=== PATIENT | female | born 2000 | race Caucasian/White ===

== ENCOUNTER 2023-08-08 21:42 | Emergency (ER) | payer BC, SELFPAY ==
[2023-08-08 21:50] VITALS: BP 114/71; PULSE 69; RESP 16; TEMP 36.6; O2SAT 98; BMI 20.1
--- NOTE | 2023-08-08 22:00 | ED_ITS ---
HPI - General Adult General Time Seen by Provider: 22:00 Date Seen: 08/08/23 Chief complaint: Psychiatric Problem/Disorder Stated complaint: suicidal ideation Time Seen by Provider: 08/08/23 22:00 Source: patient and RN notes reviewed Mode of arrival: ambulatory Limitations: no limitations History of Present Illness HPI narrative: Jess is a very pleasant 23-year-old female who comes to the emergency room from [place] for suicidal ideation. Patient notes that she has had undiagnosed depression for quite some time. She did see therapy I with a counselor during COVID and she thinks that was helpful. Not currently on any antidepressant. No large event that seems to have caused this. Patient is been experiencing significant anxiety over the past couple weeks. She has had passive thoughts of suicide but the seemed to increase today and she even was thinking about a plan. She spoke to a friend about this as well as if her fashion all and was advised to come to the emergency room. In her discussion with nursing she does not really want to but just wants some relief from what she has been feeling. 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 She notes that school is actually going well. She is from [place]. She is not denies any sexual activity, alcohol use, drug use or tobacco use. There is a history of depression in the family. She denies auditory or visual hallucinations. No other known medical problems. Denies any self-harm or taking of pills or cutting today. Related Data Home Medications Medication Instructions Recorded Confirmed spironolactone .ROUTE 08/08/23 Allergies Allergy/AdvReac Type Severity Reaction Status Date / Time No Known Drug Allergies Allergy Verified 08/08/23 21:58 Review of Systems Status of ROS: Reports: 10 or more systems reviewed and unremarkable except as noted in History and below Const: Denies: fever or chills Eyes: Denies: change in vision ENMT: Reports: nasal congestion (A few weeks ago now resolved); Denies: throat pain Cardio: Denies: chest pain or shortness of breath with exertion Resp: Denies: shortness of breath or cough GI: Denies: abdominal pain or vomiting Musculo: Denies: back pain PFSH PFSH Social History Smoking Status: Never smoker How often do you have a drink containing alcohol: never AUDIT-C Alcohol total score: 0 Non-prescribed substance use: denies use Exam Narrative: Exam Narrative: Jess is alert and oriented. She is very tearful during our initial interview. EOM is full in head is atraumatic normocephalic. Mentation is normal. She is having a hard time with extensive speaking because she is crying. Neck is supple without lymphadenopathy. No thyromegaly. Heart with regular rate and rhythm and lungs are clear. Moving all extremities. No eviden ce of old scars are cutting type behavior. No blocking or strange behavior. Const: Vital Signs, click to edit/add: Vital Signs - 24 hr 08/08/23 21:50 Temperature 97.9 F Pulse Rate [Pulse Oximeter] 69 Respiratory Rate 16 Blood Pressure [Le ft Upper Arm] 114/71 Pulse Oximetry 98 Oxygen Delivery Me thod Room Air Documenting provider has reviewed patient's vital signs: yes Course Course ED Course: Jess presents to the emergency room with increasing anxiety and now is suicidal id a soni. I do not detect a specific plan. Will have her speak to her mental health order fulfillment specialist. She is agreeable to lab draw to include CBC, comprehensive panel, salicylates, alcohol, acetaminophen drug screen urinalysis. Will also add vitamin-D magnesium and TSH given her anxiety that proceeded depression and suicidal ideation. She is agreeable. She is in the emergency room voluntarily at this time. Vital Signs Vital signs: Initial Vital Signs Temperature 97.9 F 08/08/23 21:50 Temperature Source Temporal Artery Scan 08/08/23 21:50 Pulse Rate 69 08/08/23 21:50 Respiratory Rate 16 08/08/23 21:50 Blood Pressure 114/71 08/08/23 21:50 Blood Pressure Mean 85 08/08/23 21:50 Blood Pressure Position Sitting 08/08/23 21:50 Pulse Oximetry 98 08/08/23 21:50 Oxygen Delivery Method Room Air 08/08/23 21:50 Vital Signs Temperature 97.9 F 08/08/23 21:50 Pulse Rate 69 08/08/23 21:50 Respiratory Rate 16 08/08/23 21:50 Blood Pressure 114/71 08/08/23 21:50 Pulse Oximetry 98 08/08/23 21:50 Oxygen Delivery Method Room Air 08/08/23 21:50 Temperature 97.9 F 08/08/23 21:50 Pulse Rate 69 08/08/23 21:50 Respiratory Rate 16 08/08/23 21:50 Blood Pressure 114/71 08/08/23 21:50 Pulse Oximetry 98 08/08/23 21:50 Oxygen Delivery Method Room Air 08/08/23 21:50 Medical Decision Making MDM Narrative Medical decision making narrative: 1. Depression with suicidal ideation-suicidal ideation seems passive in nature. Patient is very tearful. Laboratory values are all reassuring with negative drug screen as well as acetaminophen alcohol and salicylates. Patient will be talking to our mental health order fulfillment specialist. 2. Disposition -this case is signed out to my partner Dr. Aleman for disposition. Lab Data Lab results reviewed: Yes I reviewed the patient's lab results Labs: Lab Results 08/08/23 Range/Units 22:30 WBC 6.79 (4.50-11.00) K/uL RBC 4.23 (4.00-5.20) m/uL Hgb 12.6 (12.0-16.0) gm/dL Hct 38.7 (33.0-51.0) % MCV 92 (80-100) fL MCH 30 (26-34) pg MCHC 33 (32-36) gm/dL RDW Coeff of Misti 11.5 (11.5-15.5) % Plt Count 296 (140-440) K/uL Neut % (Auto) 57.0 (42.0-72.0) % Lymph % (Auto) 33.9 (20-44) % [place] % (Auto) 6.9 (0.0-11.0) % Eos % (Auto) 1.3 (0.0-7.0) % Baso % (Auto) 0.3 (0.0-3.0) % Neut # (Auto) 3.87 (1.7-7.0) K/uL Lymph # (Auto) 2.30 (0.90-2.90) K/uL [place] # (Auto) 0.50 (0.00-0.90) K/UL Eos # (Auto) 0.09 (0.00-0.50) K/uL Baso # (Auto) 0.02 (0.00-0.30) K/uL Abs Immat Gran (auto) 0.04 (0.00-0.30) K/uL Imm/Tot Granulo (auto) 0.6 % Sodium 136 (135-149) mmol/L Potassium 3.6 (3.6-5.1) mmol/L Chloride 102 (96-114) mmol/L Carbon Dioxide 28 (20-32) mmol/L Anion Gap 6 L (7-15) mEq/L BUN 17 (5-24) mg/dL Creatinine 0.6 (0.5-1.5) mg/dL Estimated Creat Clear 147.44 Estimated GFR 130 ml/min Glucose 96 (60-115) mg/dL Calcium 9.1 (8.4-10.6) mg/dL Magnesium 2.2 (1.5-2.6) mg/dL Total Bilirubin 0.4 (0.1-1.5) mg/dL AST 19 (12-35) U/L ALT 13 (4-35) U/L Alkaline Phosphatase 58 (40-150) U/L Total Protein 7.2 (6.0-8.3) g/dL Albumin 4.4 (3.3-5.0) g/dL 25-OH Vitamin D Total 40 (30-80) ng/mL TSH 1.440 (0.270-4.200) uIU/mL Salicylates < 1.0 L (1.0-10) mg/dL Acetaminophen < 10.0 L (10.0-30.0) ug/mL Ethyl Alcohol < 0.01 L (0.01-0.03) % Discharge Plan Discharge Clinical Impression: Depression Qualifiers: Depression Type: unspecified Qualified Code(s): F32.A - Depression, unspecified Condition: Improved Prescriptions: No Action spironolactone .ROUTE Follow Up/Referrals: Provider,Not a Local [Primary Care Provider] -
[2023-08-08 22:43] LABS: Basophils Absolute Auto 0.02 K/uL (0.00-0.30); Basophils Percent Auto 0.3 % (0.0-3.0); Eosinophils Absolute Auto 0.09 K/uL (0.00-0.50); Eosinophils Percent Auto 1.3 % (0.0-7.0); Hematocrit 38.7 % (33.0-51.0); Hemoglobin* 12.6 gm/dL (12.0-16.0); Immature Granulocytes Abs Auto 0.04 K/uL (0.00-0.30); Immature Granulocytes Pct Auto 0.6 %; Lymphocytes Percent Auto 33.9 % (20-44); Mean Corpuscular HGB Conc 33 gm/dL (32-36); Mean Corpuscular Hemoglobin 30 pg (26-34); Mean Corpuscular Volume 92 fL (80-100); Monocytes Percent Auto 6.9 % (0.0-11.0); Neutrophils Absolute Auto 3.87 K/uL (1.7-7.0); Platelet Count* 296 K/uL (140-440); RDW Coefficient of Variation % 11.5 % (11.5-15.5); Red Blood Count 4.23 m/uL (4.00-5.20); White Blood Count* 6.79 K/uL (4.50-11.00)
[2023-08-08 22:49] LABS: Slide Review Reflex No
[2023-08-08 22:51] LABS: Albumin* 4.4 g/dL (3.3-5.0)
[2023-08-08 22:52] LABS: Chloride* 102 mmol/L (96-114); Potassium* 3.6 mmol/L (3.6-5.1); Sodium* 136 mmol/L (135-149)
[2023-08-08 22:54] LABS: Alkaline Phosphatase* 58 U/L (40-150); Anion Gap 6 mEq/L (7-15); Aspartate Amino Transferase* 19 U/L (12-35); Bilirubin Total* 0.4 mg/dL (0.1-1.5); Blood Urea Nitrogen* 17 mg/dL (5-24); Carbon Dioxide* 28 mmol/L (20-32); Creatinine* 0.6 mg/dL (0.5-1.5); Est. Creatinine Clearance* 147.44; Estimated Glomerular Filt Rate 130 ml/min; Total Protein* 7.2 g/dL (6.0-8.3)
[2023-08-08 22:55] LABS: Alanine Aminotransferase* 13 U/L (4-35); Calcium* 9.1 mg/dL (8.4-10.6); Glucose* 96 mg/dL (60-115); Magnesium* 2.2 mg/dL (1.5-2.6)
[2023-08-08 23:04] LABS: Acetaminophen* < 10.0 ug/mL (10.0-30.0); Ethanol* < 0.01 % (0.01-0.03); Salicylate* < 1.0 mg/dL (1.0-10)
[2023-08-08 23:12] LABS: Vitamin D 25 Hydroxy* 40 ng/mL (30-80)
[2023-08-09 00:30] VITALS: BP 104/68; PULSE 54; RESP 18; TEMP 36.9; O2SAT 97
[2023-08-09 01:21] LABS: Ur HCG Qualitative* Negative (Negative)
[2023-08-09 01:27] LABS: Amphetamine Screen Urine Negative (Negative); Barbiturate Screen Urine Negative (Negative); Benzodiazepines Screen Urine Negative (Negative); Cannabinoid Screen Urine Negative (Negative); Cocaine Screen Urine Negative (Negative); Methadone Screen Urine Negative (Negative); Methamphetamines Screen Urine Negative (Negative); Opiate Screen Urine Negative (Negative); Oxycodone Screen Urine Negative (Negative); Phencyclidine Screen Urine Negative (Negative); Tricyclic Antidepressant Urine Negative (Negative)
[2023-08-09 03:29] VITALS: RESP 16
[2023-08-09 04:43] VITALS: BP 99/47; PULSE 54; RESP 16; TEMP 36.9; O2SAT 98
--- NOTE | 2023-08-09 05:43 | PC.NURSE ---
KRAIG tire molder on with pt.
[2023-08-09 06:26] VITALS: BP 99/66; PULSE 57; RESP 16; TEMP 36.4; O2SAT 98
--- NOTE | 2023-08-09 06:35 | PC.NURSE ---
pt eating a small breakfast.
== END 2023-08-09 06:55 | disposition home or self-care (01) ==
PROVIDERS: Emergency Provider Family Medicine
DX: R45.851 Suicidal ideations (principal); F32.A Depression, unspecified
CPT/HCPCS: 36415; 80053; 80143; 80179; 80306; 81025; 82077; 82306; 83735; 84443; 85025; 99283; 99284